=== PATIENT | female | born 1985 | race Caucasian/White ===

== ENCOUNTER 2020-08-27 04:07 | Observation (INO) ==
[2020-08-27] MEDS ORDERED: Isovue-370 500 ML BOTTLE IVP ONE (04:41)
[2020-08-27] MEDS ORDERED: Ondansetron 4 MG/2 ML VIAL IVP ONE (04:42)
[2020-08-27] MEDS ORDERED: Famotidine 20 MG/2 ML VIAL IVP ONE (04:42)
[2020-08-27 05:05] LABS: Basophils % 0.3 %; Eosinophils # 0.4 K/mcL (0.0-0.6); Eosinophils % 4.2 %; Hematocrit 31.3 % (35.3-44.9); Hemoglobin 10.5 g/dL (11.5-15.4); Immature Granulocytes % 0.3 % (0-4); Lymphocytes # 1.6 K/mcL (0.6-4.6); Lymphocytes % 18.3 %; Mean Corpuscular HGB Conc 33.5 g/dL (31.6-35.5); Mean Corpuscular Hemoglobin 28.9 pg (28.0-33.3); Mean Corpuscular Volume 86.2 fL (83.0-100.0); Monocytes # 0.6 K/mcL (0.0-1.3); Monocytes % 6.4 %; Neutrophils # 6.1 K/mcL (1.6-8.9); Platelet Count 204 K/mcL (140-400); Red Blood Count 3.63 M/mcL (3.82-4.97); Red Cell Distribution Width 14.7 % (11.5-14.5); Segmented Neutrophils % 70.5 %; White Blood Count 8.6 K/mcL (4.3-11.1)
[2020-08-27 05:22] LABS: Alanine Aminotransferase 15 Units/L (7-52); Albumin 4.1 g/dL (3.5-5.7); Albumin/Globulin Ratio 1.4 (1.1-2.2); Alkaline Phosphatase 81 Units/L (34-104); Aspartate Amino Transferase 17 Units/L (13-39); BUN/Creatinine Ratio 21 (6-26); Bilirubin,Direct 0.1 mg/dL (0.0-0.2); Bilirubin,Indirect 0.5 mg/dL (0.0-1.0); Bilirubin,Total 0.6 mg/dL (0.3-1.0); Blood Urea Nitrogen 11 mg/dL (6-20); Calcium 9.1 mg/dL (8.6-10.3); Carbon Dioxide 26 mEq/L (23-29); Chloride 105 mEq/L (98-107); Globulin 2.9 g/dL (2.4-3.5); Glucose 185 mg/dL (70-105); Lipase 14 Units/L (11-82); Osmolality,Calculated 294 (280-300); Potassium 2.9 mEq/L (3.5-5.1); Sodium 140 mEq/L (136-145); Troponin I < 0.03 ng/mL (< 0.04); eGFR For African Americans > 60 (> 60); eGFR For Non-African Americans > 60 (> 60)
[2020-08-27] MEDS ORDERED: Acetaminophen 325 MG TABLET PO ONE (05:31)
[2020-08-27 06:26] LABS: Bilirubin,Urine Negative (Negative); Blood,Urine Negative (Negative); Clarity,Urine Clear (Clear); Color,Urine Light-Yellow (Yellow); Glucose,Urine (UA) Normal (Normal); Ketones,Urine 10 mg/dL (Negative); Leukocyte Esterase,Urine Negative (Negative); Nitrite,Urine Negative (Negative); Protein,Urine Trace mg/dL (Neg-Trace); Specific Gravity,Urine > 1.030 (1.010-1.025)
[2020-08-27] MEDS ORDERED: Hyoscyamine SL 0.125 MG TAB.SUBL SL STA (08:54)
[2020-08-27] MEDS ORDERED: 0.9 % Sodium Chloride 1,000 ML IVC ONE (08:54)
[2020-08-27] MEDS ORDERED: *HR* OxyCODONE Immed Rel 5 MG TABLET PO PRN ×3 (09:10→15:33)
[2020-08-27] MEDS ORDERED: *HR* HYDROcodone/Acet 5/325 mg TABLET PO PRN ×2 (09:10→14:56)
[2020-08-27] MEDS ORDERED: Ondansetron 4 MG/2 ML VIAL IVP PRN ×3 (09:10→14:56)
[2020-08-27] MEDS ORDERED: Naloxone 0.4 MG/ML INJ IVP PRN ×4 (09:10→15:33)
[2020-08-27] MEDS ORDERED: D5% in Water 1,000 ML IVC PRN ×2 (09:12→15:35)
[2020-08-27] MEDS ORDERED: Dextrose Gel 15 GM/37.5 ML TUBE PO PRN ×6 (09:12→15:35)
[2020-08-27] MEDS ORDERED: *HR* Dextrose 50 % in Water (Vial) 50 ML VIAL IVP PRN ×3 (09:12→15:35)
[2020-08-27] MEDS ORDERED: Nitroglycerin 0.4 MG TAB.SUBL SL PRN ×4 (09:13→15:36)
[2020-08-27] MEDS ORDERED: Ringers Solution, Lactated 1,000 ML IVC SCH (09:15)
[2020-08-27] MEDS ORDERED: Lidocaine -MPF 2% 2 ML VIAL ONE (11:03)
[2020-08-27] MEDS ORDERED: *HR* FentaNYL (PF) 100 MCG/2 ML VIAL ONE (11:03)
[2020-08-27] MEDS ORDERED: *HR* Rocuronium Bromide 50 MG/5 ML VIAL ONE (11:03)
[2020-08-27] MEDS ORDERED: *HR* Midazolam HCl 2 MG/2 ML VIAL ONE (11:03)
[2020-08-27] MEDS ORDERED: *HR* Etomidate 40 MG/20 ML VIAL IVP ONE (11:03)
[2020-08-27] MEDS ORDERED: Ondansetron 4 MG/2 ML VIAL ONE (11:03)
[2020-08-27] MEDS ORDERED: *HR* Propofol 200 MG/20 ML VIAL IVP ONE (11:03)
[2020-08-27] MEDS ORDERED: Perflutren Lipid Microsphere 1.3 ML in 0.9 % Sodium Chloride 8.7 ML IVP PRN ×3 (11:53→15:36)
[2020-08-27] MEDS ORDERED: Insulin LISPRO 300 UNITS/3 ML VIAL SUBQ SCH ×2 (12:00→18:00)
[2020-08-27] MEDS ORDERED: *HR* FentaNYL (PF) 100 MCG/2 ML VIAL IVP PRN (12:52)
[2020-08-27] MEDS ORDERED: Albuterol 2.5 MG/3 ML NEBULIZER IH PRN (12:52)
[2020-08-27] MEDS ORDERED: *HR* HYDROMORPHONE 2 MG/ML VIAL ONE (13:22)
[2020-08-27] MEDS ORDERED: Ketorolac 30 MG/ML VIAL ONE (13:34)
[2020-08-27] MEDS ORDERED: Sugammadex Sodium 200 MG/2 ML VIAL IV ONE (13:43)
[2020-08-27] MEDS ORDERED: Ondansetron ODT 4 MG TAB.RAPDIS SL PRN (15:33)
[2020-08-27] MEDS: Insulin LISPRO 300 UNITS/3 ML VIAL SUBQ SCH (18:42)
[2020-08-27] MEDS: *HR* HYDROcodone/Acet 5/325 mg TABLET PO PRN (19:31)
[2020-08-27] MEDS ORDERED: traZODone 50 MG TABLET PO SCH (21:45)
[2020-08-28] MEDS: Insulin LISPRO 300 UNITS/3 ML VIAL SUBQ SCH ×2 (02:21→04:46)
[2020-08-28 04:42] LABS: BUN/Creatinine Ratio 20 (6-26); Blood Urea Nitrogen 9 mg/dL (6-20); Calcium 8.6 mg/dL (8.6-10.3); Carbon Dioxide 24 mEq/L (23-29); Chloride 109 mEq/L (98-107); Glucose 102 mg/dL (70-105); Magnesium 1.8 mg/dL (1.6-2.6); Osmolality,Calculated 293 (280-300); Phosphorous 2.4 mg/dL (2.7-4.5); Potassium 3.6 mEq/L (3.5-5.1); Sodium 142 mEq/L (136-145); eGFR For African Americans > 60 (> 60); eGFR For Non-African Americans > 60 (> 60)
[2020-08-28] MEDS: *HR* HYDROcodone/Acet 5/325 mg TABLET PO PRN (05:23)
[2020-08-28 07:47] VITALS: BP 109/58
[2020-08-28 08:41] LABS: Basophils % 0.2 %; Eosinophils % 0.1 %; Hematocrit 30.3 % (35.3-44.9); Hemoglobin 9.8 g/dL (11.5-15.4); Immature Granulocytes % 0.5 % (0-4); Lymphocytes # 1.8 K/mcL (0.6-4.6); Lymphocytes % 13.6 %; Mean Corpuscular HGB Conc 32.3 g/dL (31.6-35.5); Mean Corpuscular Hemoglobin 28.6 pg (28.0-33.3); Mean Corpuscular Volume 88.3 fL (83.0-100.0); Mean Platelet Volume 11.7 fL (9.4-12.4); Monocytes # 0.9 K/mcL (0.0-1.3); Monocytes % 6.7 %; Neutrophils # 10.3 K/mcL (1.6-8.9); Platelet Count 183 K/mcL (140-400); Red Blood Count 3.43 M/mcL (3.82-4.97); Red Cell Distribution Width 15.7 % (11.5-14.5); Segmented Neutrophils % 78.9 %; White Blood Count 13.1 K/mcL (4.3-11.1)
[2020-08-28] MEDS ORDERED: Pantoprazole 40 MG VIAL IVP SCH ×2 (09:00)
[2020-08-28 11:23] LABS: Estimated Average Glucose 111 mg/dl; Hemoglobin A1C 5.5 %
== END 2020-08-28 12:08 | disposition home or self-care (01) ==
LOC: EMEROOARM 04:07 → CDU 04:07 → SUATTDRO 09:16 → CDU 09:30 → 3ANU 14:19
PROVIDERS: ADMIT Internal Medicine; ATTEND Internal Medicine